=== PATIENT | male | born 1995 | race African-American/Black ===

== ENCOUNTER 2018-03-13 00:21 | Emergency (ER) | payer SELFPAY ==
--- NOTE | 2018-03-13 00:23 | EDM.PDOC ---
ED HPI GENERAL MEDICAL PROBLEM - General Stated Complaint: TOOTH INFECTION Time Seen by Provider: 03/13/18 00:23 - History of Present Illness INITIAL COMMENTS - FREE TEXT/NARRATIVE: HISTORY AND PHYSICAL: History of present illness: 23-year-old male presenting to emergency department with chief complaint of left lower tooth pain. Patient states for the past 2 weeks his head gradually worsening left lower tooth pain. States he did crack the tooth. He has been unable to get into see a dentist. States that he did have one similar year ago on the right side but was able to get it extracted by dentists here in [place]. Denies any associated fever, respiratory difficulties, drooling, hot potato voice. Has no medical allergies and takes no normal medications. Originally from [facility] but has been in [place] for the past 4 years. There is a dental cavity on lower tooth #20 with surrounding erythema and swelling significant for dental abscess. Review of systems: As per history of present illness and below otherwise all systems reviewed and negative. Past medical history: As per history of present illness and as reviewed below otherwise noncontributory. Surgical history: As per history of present illness and as reviewed below otherwise noncontributory. Social history: No reported history of drug or alcohol abuse. Family history: As per history of present illness and as reviewed below otherwise noncontributory. Physical exam: HEENT: See above, Atraumatic, normocephalic, pupils reactive, negative for conjunctival pallor or scleral icterus, mucous membranes moist, throat clear, neck supple, nontender, trachea midline. Lungs: Clear to auscultation, breath sounds equal bilaterally, chest nontender. Heart: S1S2, regular, negative for clicks, rubs, or JVD. Abdomen: Soft, nondistended, nontender. Negative for masses or hepatosplenomegaly. Negative for costovertebral tenderness. Pelvis: Stable nontender. Genitourinary: Deferred. Rectal: Deferred. Extremities: Atraumatic, negative for cords or calf pain. Neurovascular unremarkable. Neuro: Awake, alert, oriented. Cranial nerves II through XII unremarkable. Cerebellum unremarkable. Motor and sensory unremarkable throughout. Exam nonfocal. Diagnostics: Therapeutics: Dental balls Clindamycin 450 mg by mouth every 6 hours when necessary 10 days Impression: Dental abscess Plan: Please see H&P. Patient was given dental balls as well as a prescription for clindamycin 450 mg by mouth every 6 hours 10 days for dental abscess. He was told to follow-up with her primary care physician as well as make an appointment with dentist to have this extracted. Patient states that he is going to follow-up with [facility] where he had his other tooth extracted. tooth Pain Score (Numeric/FACES): 9 - Related Data Allergies Allergy/AdvReac Type Severity Reaction Status Date / Time No Known Allergies Allergy Verified 03/13/18 00:26 Home Meds: Home Meds . [No Known Home Meds] 03/13/18 [History] ED ROS GENERAL - Review of Systems Review Of Systems: ROS reveals no pertinent complaints other than HPI. ED EXAM, GENERAL - Physical Exam Exam: See Below Course - Vital Signs Last Recorded V/S: Last Vital Signs Temp 97.4 F 03/13/18 00:21 Pulse 82 03/13/18 00:21 Resp 16 03/13/18 00:21 BP 112/63 03/13/18 00:21 Pulse Ox - Orders/Labs/Meds Orders: Active Orders 24 hr Category Date Time Status Benzocaine [Hurricaine One 20%] Med 03/13/18 01:08 Once 2 each MUCMEM ONETIME ONE Lidocaine 2% [Xylocaine 2% Viscous] Med 03/13/18 01:08 Once 15 ml PO ONETIME ONE Medication Orders Benzocaine (Hurricaine One 20%) 2 each MUCMEM ONETIME ONE Stop: 03/13/18 01:09 Lidocaine HCl (Xylocaine 2% Viscous) 15 ml PO ONETIME ONE Stop: 03/13/18 01:09 Meds: Medications Generic Name Dose Route Start Last Admin Trade Name Freq PRN Reason Stop Dose Admin Benzocaine 2 each 03/13/18 01:08 Hurricaine One 20% MUCMEM 03/13/18 01:09 ONETIME ONE Lidocaine HCl 15 ml 03/13/18 01:08 Xylocaine 2% Viscous PO 03/13/18 01:09 ONETIME ONE Departure - Departure Time of Disposition: 01:14 Disposition: Home, Self-Care 01 Condition: Good Clinical Impression: Dental abscess - Discharge Information Additional Instructions: My general discharge The following information is given to patients seen in the emergency department who are being discharged to home. This information is to outline your options for follow-up care. We provide all patients seen in our emergency department with a follow-up referral. The need for follow-up, as well as the timing and circumstances, are variable depending upon the specifics of your emergency department visit. If you don't have a primary care physician on staff, we will provide you with a referral. We always advise you to contact your personal physician following an emergency department visit to inform them of the circumstance of the visit and for follow-up with them and/or the need for any referrals to a consulting specialist. The emergency department will also refer you to a specialist when appropriate. This referral assures that you have the opportunity for follow-up care with a specialist. All of these measure are taken in an effort to provide you with optimal care, which includes your follow-up. Under all circumstances we always encourage you to contact your private physician who remains a resource for coordinating your care. When calling for follow-up care, please make the office aware that this follow-up is from your recent emergency room visit. If for any reason you are refused follow-up, please contact the [facility] Emergency Department at and asked to speak to the emergency department charge nurse. [facility] [address] [place] [address] 1 follow-up with dentist for tooth extraction. 2. Take medications as prescribed. 3. Return to emergency department if any new or worsening symptoms. - My Orders Last 24 Hours: My Active Orders 03/13/18 01:08 Benzocaine [Hurricaine One 20%] 2 each MUCMEM ONETIME ONE Lidocaine 2% [Xylocaine 2% Viscous] 15 ml PO ONETIME ONE - Assessment/Plan Last 24 Hours: My Active Orders 03/13/18 01:08 Benzocaine [Hurricaine One 20%] 2 each MUCMEM ONETIME ONE Lidocaine 2% [Xylocaine 2% Viscous] 15 ml PO ONETIME ONE
[2018-03-13] MEDS ORDERED: Benzocaine 20% Topical Spray UD MUCMEM ONE (01:08)
[2018-03-13] MEDS ORDERED: Lidocaine 2% Viscous Solution 15 ML Cup PO ONE (01:08)
== END 2018-03-13 01:25 | disposition home or self-care (01) ==
LOC: MW.ED 00:21
DX: K04.7 Periapical abscess without sinus (principal)
CPT/HCPCS: 99282; A9270; 99283